=== PATIENT | male | born 1995 | race Caucasian/White ===

== ENCOUNTER 2017-04-11 01:47 | Emergency (ER) | payer OTHER ==
[~2017-04-11 01:47] MED LIST: ONDANSETRON 4 MG/2 ML VIAL ONE
[2017-04-11] MEDS ORDERED: ONDANSETRON 4 MG/2 ML VIAL IVP ONE (01:49)
[2017-04-11] MEDS ORDERED: NS 1,000 ML IV ONE (01:49)
[2017-04-11 01:50] VITALS: TEMP 97.9
--- NOTE | 2017-04-11 01:51 | EDPHY ---
H & P HPI/ROS: HPI CHIEF COMPLAINT: Alcohol Intoxication HISTORY OF PRESENT ILLNESS: This patient 21-year-old male brought in by EMS after was found lying over the side of his bathtub vomiting. He was with his girlfriend. She also arrived to the emergency room by ambulance for acute alcohol intoxication. Patient reports to me that he drank a large amount of rum this evening. He has vomiting. Denies any trauma. EMS reports normal blood sugar. Past Medical History: Denies medical history Past Surgical History: Denies surgical history Social History: Drink large amount of alcohol this evening. Family History: Noncontributory ROS REVIEW OF SYSTEMS: A comprehensive 10 point review of systems is otherwise negative aside from elements mentioned in the history of present illness. Exam Constitutional Intoxicated, triage nursing summary reviewed, vital signs reviewed, Sleepy, smells of alcohol Eyes normal conjunctivae and sclera, horizontal beating nystagmus consistent acute alcohol intoxication, otherwise pupils equal and react to light HENT normal inspection, atraumatic, moist mucus membranes, no epistaxis, neck supple/ no meningismus, no raccoon eyes. Respiratory clear to auscultation bilaterally, normal breath sounds, no respiratory distress, no wheezing. Cardiovascular rate normal, regular rhythm, no murmur, no edema, distal pulses normal. Gastrointestinal soft, non-tender, no rebound, no guarding, normal bowel sounds, no distension, no pulsatile mass. Genitourinary no CVA tenderness. Musculoskeletal no midline vertebral tenderness, full range of motion, no calf swelling, no tenderness of extremities, no meningismus, good pulses, neurovascularly intact. Skin pink, warm, & dry, no rash, skin atraumatic. Neurologic sleepy, intoxicated with alcohol,, alert and oriented x 3, AAOx3, moves all 4 extremities equally, motor intact, sensory intact, CN II-XII intact , , normal vision, normal speech. Psychiatric normal mood/affect. Heme/Lymph/Immune no lymphadenopathy. Differential Diagnosis: Includes but is not limited to in a particular order acute alcohol intoxication, alcohol abuse, dehydration, electrolyte abnormality , nausea vomiting from acute alcohol intoxication Medical Decision Making: Plan for this patient IV establishment IV fluid bolus, normal saline 1 L, 4 mg IV Zofran. Check serum alcohol level Re-evaluation: 0236AM: Serum alcohol level 198. Patient signed over to Dr. Esposito at 3:00 a.m.. Patient can go home when sober. Source: Patient, EMS Constitutional: Initial Vital Signs Temperature (C) 36.6 C 04/11/17 01:49 Heart Rate 90 04/11/17 01:49 Respiratory Rate 12 04/11/17 01:49 Blood Pressure 119/75 04/11/17 01:49 O2 Sat (%) 95 04/11/17 01:49 O2 Delivery Mode Room Air Allergies/Adverse Reactions: No Known Allergies Allergy (Unverified 04/11/17 01:48) Home Medications: Medication Instructions Recorded Unobtainable 04/11/17 Medical Decision Making - Data Points Laboratory Results: Laboratory Results 04/11/17 01:54 04/11/17 01:54 04/11/17 04/11/17 01:54 01:54 WBC 7.89 10^3/uL 10^3/uL (3.80-9.50) RBC 4.83 10^6/uL 10^6/uL (4.40-6.38) Hgb 15.6 g/dL g/dL (13.7-17.5) Hct 43.5 % % (40.0-51.0) MCV 90.1 fL fL (81.5-99.8) MCH 32.3 pg pg (27.9-34.1) MCHC 35.9 g/dL g/dL (32.4-36.7) RDW 12.5 % % (11.5-15.2) Plt Count 264 10^3/uL 10^3/uL (150-400) MPV 9.7 fL fL (8.7-11.7) Neut % (Auto) 33.9 % L % (39.3-74.2) Lymph % (Auto) 57.4 % H % (15.0-45.0) [place] % (Auto) 7.1 % % (4.5-13.0) Eos % (Auto) 0.8 % % (0.6-7.6) Baso % (Auto) 0.5 % % (0.3-1.7) Nucleat RBC Rel Count 0.0 % % (0.0-0.2) Absolute Neuts (auto) 2.68 10^3/uL 10^3/uL (1.70-6.50) Absolute Lymphs (auto) 4.53 10^3/uL H 10^3/uL (1.00-3.00) Absolute Monos (auto) 0.56 10^3/uL 10^3/uL (0.30-0.80) Absolute Eos (auto) 0.06 10^3/uL 10^3/uL (0.03-0.40) Absolute Basos (auto) 0.04 10^3/uL 10^3/uL (0.02-0.10) Absolute Nucleated RBC 0.00 10^3/uL 10^3/uL (0-0.01) Immature Gran % 0.3 % % (0.0-1.1) Immature Gran # 0.02 10^3/uL 10^3/uL (0.00-0.10) Sodium 144 mEq/L mEq/L (134-144) Potassium 3.6 mEq/L mEq/L (3.5-5.2) Chloride 103 mEq/L mEq/L (97-110) Carbon Dioxide 24 mEq/l mEq/l (22-31) Anion Gap 17 mEq/L H mEq/L (8-16) BUN 12 mg/dL mg/dL (7-23) Creatinine 1.0 mg/dL mg/dL (0.7-1.3) Estimated GFR > 60 Glucose 116 mg/dL H mg/dL (70-100) Calcium 9.2 mg/dL mg/dL (8.5-10.4) Ethyl Alcohol 198 mg/dL H mg/dL (0-10) Medications Given: Discontinued Medications Sodium Chloride (Ns) 1,000 mls @ 0 mls/hr IV EDNOW ONE; Wide Open PRN Reason: Protocol Stop: 04/11/17 01:50 Last Admin: 04/11/17 01:55 Dose: 1,000 mls Ondansetron HCl (Zofran) 4 mg IVP EDNOW ONE Stop: 04/11/17 01:50 Last Admin: 04/11/17 01:55 Dose: 4 mg Departure - Departure Disposition: Home, Routine, Self-Care Clinical Impression: Alcoholic intoxication Qualifiers: Complication of substance-induced condition: uncomplicated Qualified Code(s): F10.920 - Alcohol use, unspecified with intoxication, uncomplicated Condition: Good Instructions: Alcohol Intoxication (ED), Abuse of Alcohol (ED) Referrals: Patient,NotPresent [Unknown] - As per Instructions
[2017-04-11 02:22] LABS: PLATELET COUNT 264 10^3/uL (150-400)
[2017-04-11 03:12] VITALS: RESP 16; O2SAT 96
[2017-04-11 04:27] VITALS: BP 110/70; PULSE 78
== END 2017-04-11 04:27 | disposition home or self-care (01) ==
LOC: EDUNIT#
DX: F10.920 Alcohol use, unspecified with intoxication, uncomplicated (principal); E86.9 Volume depletion, unspecified
CPT/HCPCS: 96374; G0480; J2405

== ENCOUNTER → 2018-02-09 | Outpatient (CLI) | payer OTHER | LOC: FIMAGING 07:57 | PROVIDERS: ATTEND Internal Medicine | DX: R10.33 Periumbilical pain (principal); R19.8 Other specified symptoms and signs involving the digestive system and abdomen; K82.4 Cholesterolosis of gallbladder ==